=== PATIENT | female | born 1975 | race Caucasian/White ===

== ENCOUNTER 2016-11-07 22:11 | Emergency (ER) | payer MEDICARE, OTHER ==
[~2016-11-07 22:11] MED LIST: *UNABLE1; ACCUNE1 INH; ADVAIR100 INH; ADVAIR250 INH; ASA5GR PO; ASAB PO; BACDS PO; BUM2 PO; BUMEX PO; CALCIUM CITRATE PO; CALTRA600D PO; CELEXA40 MG PO; CHANTIX1 PO; CLINDA150 PO; CYANOCOBALAMIN; CYANOCOBALAMIN IM; DENIES HOME MEDS; DIOVAN HC1 PO; DIOVAN HCT160 MG/25 PO; DSS PO; DULERA 100 MCG/13 GM INH; DULERA 200 MCG/13 GM INH; GLUCPH PO; KAPIDEX30 MG PO; KLONO1 PO; KLONO2 PO; KLONO5 PO; KLONOPIN WAF2 MG PO; KLOR-CON M2020 MEQ PO; LANTUS SC; LANTUSCART SC; LIDOVISCUD PO; LIPITOR10 PO; LIPITOR20 PO; LISINOPRIL40 MG PO; LOP25 PO; LORTAB10 PO; MEDROLPAK4; MULTIVIT/MIN PO; MULTIVITAMI1 PO; NABUMETONE750 MG PO; NORCO1 TA2 PO; NOVOLOG SC; NOVOPENMIX SC; NTG150 SL; PERCOCET1 TA4 PO; PR25 PO; PRAVAC PO; PRILO PO; PRILOSEC OTC20 MG PO; PRILOSEC40 MG PO; PRIN20 PO; PROAIR HFA INH; PROVHFA INH; QUESTRAN4 GM PO; UNKNOWN CHOLESTEROL PO; VITAMIN B-122500 MCG SL; VITD PO; [UNRECOGNIZED DRUG - OTHER] PO
== END 2016-11-07 23:16 | disposition home or self-care (01) ==
LOC: ER 22:11
DX: S70.02XA Contusion of left hip, initial encounter (principal); Z96.642 Presence of left artificial hip joint; Z88.8 Allergy status to other drugs, medicaments and biological substances; Z88.1 Allergy status to other antibiotic agents; Z88.5 Allergy status to narcotic agent; Z79.899 Other long term (current) drug therapy; Z88.0 Allergy status to penicillin; Z79.82 Long term (current) use of aspirin; W19.XXXA Unspecified fall, initial encounter
CPT/HCPCS: 73502-LT; 99283